=== PATIENT | male | born 1940 | race Caucasian/White ===

== ENCOUNTER → 2016-07-02 | Outpatient (CLI) | payer MEDICARE | LOC: CT 06-22 15:30 | DX: I71.2 Thoracic aortic aneurysm, without rupture (principal); R06.09 Other forms of dyspnea; R91.8 Other nonspecific abnormal finding of lung field; R91.1 Solitary pulmonary nodule; Z72.0 Tobacco use | CPT/HCPCS: 36415; 71270; 82565; 84520; Q9962 ==

== ENCOUNTER → 2016-08-04 | Outpatient (CLI) | payer MEDICARE | LOC: HEART 5 14:05 | DX: R94.2 Abnormal results of pulmonary function studies (principal); Z72.0 Tobacco use | CPT/HCPCS: 94060; 94729 ==